=== PATIENT | male | born 1950 | race Caucasian/White ===

== ENCOUNTER 2016-12-21 07:12 | Day surgery (SDC) | payer MEDICARE, MEDICAID ==
[~2016-12-21] VITALS: Ht 157.5 cm; Wt 69.0 kg
[~2016-12-21 07:12] MED LIST: BUPIVACAINE HCL/PF 0.75% (7.5MG/ML) 10ML ONE; LIDOCAINE HCL 2%/EPINEPHRINE 1:100,000 20 ML VIAL INFIL ONE; NEO/POLYMYX B SULF/DEXAMETH OPHTH OINT 3.5GM ONE
[2016-12-21] MEDS ORDERED: SODIUM CHLORIDE 0.9% 1,000 ML IV ONE (08:12)
[2016-12-21 08:32] LABS: BASOPHILS % 1.3 % (0.0-2.0); EOSINOPHILS % 1.5 % (0.0-5.0); HEMATOCRIT. 40.2 % (42.0-52.0); HEMOGLOBIN. 14.3 g/dL (14.0-18.0); LYMPHOCYTES % 27.3 % (20.0-50.0); MEAN CORPUSCULAR HEMOGLOBIN 31.4 pg (28.0-32.0); MEAN PLATELET VOLUME 8.5 fl (7.4-10.4); MONOCYTES % 8.1 % (2.0-8.0); NEUTROPHILS % 61.8 % (40.0-76.0); PLATELET 128 x1000/uL (130-400); RED BLOOD CELL COUNT 4.57 mill/uL (4.7-6.1); RED CELL DISTRIBUTION WIDTH 13.6 % (11.6-14.6)
[2016-12-21 08:40] LABS: PARTIAL THROMBOPLASTIN TIME 25.9 sec (23.4-31.0); PROTHROMBIN TIME 10.4 sec (9.4-11.6)
[2016-12-21 08:49] LABS: CARBON DIOXIDE 22 mEq/L (21-32); CHLORIDE 111 mEq/L (98-107)
[2016-12-21 10:17] VITALS: BP 145/81
[2016-12-21] MEDS ORDERED: PROPOFOL 200MG/20ML VIAL IV ONE ×2 (10:48→11:17)
[2016-12-21] MEDS ORDERED: LIDOCAINE HCL 1% 20ML VIAL (Pyxis) INJ ONE (10:48)
[2016-12-21] MEDS ORDERED: LABETALOL HCL 5MG/ML VIAL 20ML IV PRN (11:15)
[2016-12-21] MEDS ORDERED: MEPERIDINE HCL/PF 25MG/ML CPJ IV PRN (11:15)
[2016-12-21] MEDS ORDERED: ONDANSETRON HCL 4MG/2ML VIAL IV PRN (11:15)
[2016-12-21] MEDS ORDERED: CEFAZOLIN SODIUM 1000MG/VIAL ONE ×2 (11:19→11:21)
== END 2016-12-21 12:30 | disposition home or self-care (01) ==
LOC: ER 08:15 → OR 08:16 → UNDOADMIN 10:40 → ORIP 10:40 → UNDODISIN 12:01 → OR 12:30
PROVIDERS: ATTEND Ophthalmology
DX: C44.112 Basal cell carcinoma of skin of right eyelid, including canthus (principal); I10 Essential (primary) hypertension; E11.9 Type 2 diabetes mellitus without complications; Z96.1 Presence of intraocular lens; Z98.42 Cataract extraction status, left eye; Z98.41 Cataract extraction status, right eye
CPT/HCPCS: 11640; 36415; 80053; 82962; 85025; 85610; 85730; 88305; 88331; 93005; 96360; 99285; J0690; J3490; J7030; J2704